=== PATIENT | male | born 1965 | race Caucasian/White ===

== ENCOUNTER 2016-10-21 13:24 | Emergency (ER) | payer BC ==
[~2016-10-21] VITALS: Ht 185.4 cm; Wt 113.4 kg
[2016-10-21 13:28] VITALS: BP_SYST 131
[2016-10-21] MEDS ORDERED: KETOROLAC TROMETHAMINE 60 MG/2 ML VIAL IM ONE (14:45)
[2016-10-21 17:07] VITALS: BP_SYST 149
== END 2016-10-21 17:07 | disposition home or self-care (01) ==
LOC: SED 13:24
DX: S73.191A Other sprain of right hip, initial encounter (principal); E11.9 Type 2 diabetes mellitus without complications; F17.200 Nicotine dependence, unspecified, uncomplicated; W17.89XA Other fall from one level to another, initial encounter; Y93.89 Activity, other specified; Y92.098 Other place in other non-institutional residence as the place of occurrence of the external cause; Y99.8 Other external cause status
CPT/HCPCS: 73502; 96372; 99284; J1885